=== PATIENT | male | born 1965 | race African-American/Black ===

== ENCOUNTER 2017-08-22 16:01 | Emergency (ER) | payer MEDICAID | END 2017-08-22 18:00 | disposition home or self-care (01) | LOC: M ED 16:01 | DX: S89.91XA Unspecified injury of right lower leg, initial encounter (principal); H40.9 Unspecified glaucoma; E03.9 Hypothyroidism, unspecified; X58.XXXA Exposure to other specified factors, initial encounter; Y92.89 Other specified places as the place of occurrence of the external cause; Y93.9 Activity, unspecified; Z79.899 Other long term (current) drug therapy | CPT/HCPCS: 73564 ==

== ENCOUNTER → 2017-08-29 | Outpatient (REF) | payer MEDICAID ==
[2017-08-29 20:38] LABS: BASO % 0.6 % (0.0-1.0); EOS # 0.2 10^3/uL (0.0-0.50); EOS % 4.2 % (0.0-3.0); HEMATOCRIT 41.5 % (42.0-52.0); HEMOGLOBIN 13.2 g/dl (14.0-18.0); IMMATURE GRANULOCYTE % 0.2 % (0-3.0); LYMPH % 42.3 % (24.0-44.0); MEAN CORPUSCULAR HEMOGLOBIN 27.7 pg (27.0-33.0); MEAN CORPUSCULAR HGB CONC 31.8 g/dl (32.0-36.5); MEAN CORPUSCULAR VOLUME 87.2 fl (80.0-96.0); MONO # 0.4 10^3/uL (0.0-0.8); MONO % 8.6 % (0.0-5.0); NEUTROPHILS # 2.1 10^3/uL (1.8-7.7); NEUTROPHILS % 44.1 % (36.0-66.0); PLATELET COUNT, AUTOMATED 170 10^3/uL (150-450); RED BLOOD COUNT 4.76 10^6/uL (4.30-6.10); WHITE BLOOD COUNT 4.8 10^3/uL (4.0-10.0)
[2017-08-29 20:54] LABS: TOTAL 25(OH) VITAMIN D 14.5 NG/ML (30.0-100.0)
[2017-08-29 21:08] LABS: ALBUMIN 3.9 GM/DL (3.2-5.2); ALBUMIN/GLOBULIN RATIO 1.08 (1.00-1.93); ALKALINE PHOSPHATASE 53 U/L (45-117); ALT/SGPT 34 U/L (12-78); ANION GAP 7 MEQ/L (8-16); AST/SGOT 20 U/L (7-37); BILIRUBIN,TOTAL 0.4 MG/DL (0.2-1.0); BLOOD UREA NITROGEN 14 MG/DL (7-18); CALCIUM LEVEL 8.6 MG/DL (8.5-10.1); CARBON DIOXIDE LEVEL 24 MEQ/L (21-32); CHLORIDE LEVEL 109 MEQ/L (98-107); CHOLESTEROL LEVEL 174 MG/DL (<200); CHOLESTEROL RISK RATIO 3.346 (<5); CREATININE FOR GFR 0.97 MG/DL (0.70-1.30); GLOMERULAR FILTRATION RATE > 60.0 (>56); GLUCOSE, FASTING 81 MG/DL (70-100); HDL CHOLESTEROL 52 MG/DL (>40); LDL CHOLESTEROL 101.4 MG/DL (<100); NON-HDL-C 122 MG/DL; POTASSIUM SERUM 4.4 MEQ/L (3.5-5.1); SODIUM LEVEL 140 MEQ/L (136-145); TOTAL PROTEIN 7.5 GM/DL (6.4-8.2); TRIGLYCERIDES LEVEL 103 MG/DL (<150)
[2017-08-29 21:35] LABS: HIV 1&2 SCREEN CENTAUR NEGATIVE (NEGATIVE)
[2017-08-29 21:42] LABS: ESTIMATED AVERAGE GLUCOSE 131 MG/DL (60-110); HEMOGLOBIN A1c 6.2 %
[2017-08-29 22:10] LABS: CHLAMYDIA DNA AMPLIFICATION NEGATIVE (NEGATIVE); GC DNA AMPLIFICATION NEGATIVE (NEGATIVE)
== END ==
LOC: M LAB REF 20:08
DX: Z00.00 Encounter for general adult medical examination without abnormal findings (principal)

== ENCOUNTER → 2017-09-06 | Outpatient (CLI) | payer OTHER, MEDICAID | LOC: M RAD 12:36 | DX: M71.21 Synovial cyst of popliteal space [Baker], right knee (principal) | CPT/HCPCS: 93971 ==

== ENCOUNTER → 2017-10-18 | Day surgery (SDC) | payer OTHER ==
[~2017-10-18] MED LIST: LIDOCAINE 1% MDV 20ML VIAL As Ordered; NS 1,000 ML IV; PROPOFOL 200 MG/20 ML VIAL As Ordered
== END | disposition home or self-care (01) ==
LOC: M OPP 09:01
DX: Z12.11 Encounter for screening for malignant neoplasm of colon (principal); K64.8 Other hemorrhoids; I10 Essential (primary) hypertension; E78.5 Hyperlipidemia, unspecified; E03.9 Hypothyroidism, unspecified; M19.90 Unspecified osteoarthritis, unspecified site; F41.9 Anxiety disorder, unspecified; F32.9 Major depressive disorder, single episode, unspecified; M25.569 Pain in unspecified knee; G47.30 Sleep apnea, unspecified; F17.210 Nicotine dependence, cigarettes, uncomplicated; Z79.899 Other long term (current) drug therapy
CPT/HCPCS: G0121

== ENCOUNTER → 2018-01-08 | Outpatient (REF) | payer OTHER ==
[2018-01-08 20:13] LABS: THYROID STIMULATING HORMONE 0.057 uIU/ML (0.358-3.740)
== END ==
LOC: M LAB REF 17:10
DX: E03.9 Hypothyroidism, unspecified (principal)
CPT/HCPCS: 84443

== ENCOUNTER → 2018-01-10 | Outpatient (CLI) | payer OTHER | LOC: M EKG 09:43 | DX: R00.1 Bradycardia, unspecified (principal); K08.499 Partial loss of teeth due to other specified cause, unspecified class | CPT/HCPCS: 93005 ==

== ENCOUNTER → 2018-02-05 | Outpatient (RCR) | payer OTHER | LOC: M PT 14:39 | DX: Z51.89 Encounter for other specified aftercare (principal); M75.41 Impingement syndrome of right shoulder; Z79.899 Other long term (current) drug therapy | CPT/HCPCS: 97014 ==

== ENCOUNTER 2018-02-11 15:51 | Outpatient (RCR) | payer OTHER | END 2018-03-08 | LOC: M PT 15:51 | DX: Z47.89 Encounter for other orthopedic aftercare (principal); M51.36 Other intervertebral disc degeneration, lumbar region; M16.0 Bilateral primary osteoarthritis of hip; M25.511 Pain in right shoulder | CPT/HCPCS: 97110 ==

== ENCOUNTER 2018-03-13 14:58 | Outpatient (RCR) | payer OTHER | END 2018-04-07 | LOC: M PT 14:58 | DX: Z47.89 Encounter for other orthopedic aftercare (principal); M51.36 Other intervertebral disc degeneration, lumbar region; M16.0 Bilateral primary osteoarthritis of hip; M75.41 Impingement syndrome of right shoulder | CPT/HCPCS: 97110 ==

== ENCOUNTER → 2018-05-07 | Outpatient (REF) | payer OTHER, MEDICAID ==
[2018-05-07 20:34] LABS: ALBUMIN/GLOBULIN RATIO 1.18 (1.00-1.93); ALKALINE PHOSPHATASE 64 U/L (45-117); ALT/SGPT 27 U/L (12-78); ANION GAP 3 MEQ/L (8-16); AST/SGOT 20 U/L (7-37); BILIRUBIN,TOTAL 0.6 MG/DL (0.2-1.0); BLOOD UREA NITROGEN 13 MG/DL (7-18); CARBON DIOXIDE LEVEL 26 MEQ/L (21-32); CHLORIDE LEVEL 110 MEQ/L (98-107); GLOMERULAR FILTRATION RATE > 60.0 (>56); GLUCOSE, FASTING 97 MG/DL (70-100); POTASSIUM SERUM 4.3 MEQ/L (3.5-5.1); SODIUM LEVEL 139 MEQ/L (136-145); TOTAL PROTEIN 7.4 GM/DL (6.4-8.2)
== END ==
LOC: M LAB REF 19:59
DX: E03.9 Hypothyroidism, unspecified (principal)
CPT/HCPCS: 84443

== ENCOUNTER → 2018-07-04 | Outpatient (CLI) | payer OTHER ==
[~2018-07-04] MED LIST changes: +BRIM0.2S13 OD; +CAPS0.1C2 EX; +DORZ2OPD OD; +IBUP-1022 PO; +IBUP80TA PO; +LEVO150T7 PO; -LIDOCAINE 1% MDV 20ML VIAL As Ordered; +LIPI20TA PO; -NS 1,000 ML IV; -PROPOFOL 200 MG/20 ML VIAL As Ordered; +TIMO0.2529 OP; +TRAV04OPD OU
--- NOTE | 2018-07-04 10:41 | REP ---
MRI LUMBAR SPINE WITHOUT CONTRAST: HISTORY: Degenerative disc disease in the lumbar region. Low back pain and bilateral hip pain. No comparison imaging. TECHNIQUE: Sagittal and axial T1- and T2-weighted scans are acquired in the usual fashion with and without fat saturation. Sequences include spin echo, turbo spin-echo, and STIR imaging sequences. MRI FINDINGS: There is straightening of the normal lumbar lordosis. There is advanced degenerative disc disease diffusely at each level from L2-3 through L4-5 with disc space narrowing and desiccation. There are reactive marrow changes associated with each of these discs as well. The tip of the conus medullaris is normal in position and appearance at T12-L1. No extra spinal abnormality is observed. Normal caliber aorta. Axial and sagittal images at the L1-2 disc level show left lateral disc bulging. No posterior or posterolateral disc bulging is seen. No central canal stenosis or neural foraminal narrowing is seen. At L2-3, there is mild to moderate central canal stenosis due to diffuse disc bulging, developmentally short pedicles, ligamentum flavum and facet hypertrophy, and the presence of some dorsal epidural fat. The thecal sac measures at 9 mm in AP dimension in the midline at this level. CSF T2 signal intensity is effaced. There is some disc bulging in the foraminal segment of the disc bilaterally as well. The nerve roots are surrounded by epidural fat without visible compression. At L3-4, there is mild diffuse disc bulging. No central canal stenosis is seen. Facet and ligamentum flavum hypertrophy are present. There is mild bilateral neural foraminal encroachment due to facet hypertrophy and disc bulging. At L4-L5, there is diffuse disc bulging. There is neural foraminal narrowing bilaterally due to disc bulging and facet hypertrophy. There is no evidence of spondylolysis or spondylolisthesis. No central canal stenosis is noted L4-5. Some facet and ligamentum flavum hypertrophy is present. At L5-S1, there is osteoarthritic facet hypertrophy bilaterally. No other finding. IMPRESSION: Degenerative spondylosis changes. The dominant abnormality is mild to moderate central canal stenosis at the L2-3 level due to a combination combined and developmental factors. There is multilevel neural foraminal narrowing which is most pronounced bilaterally at L4-5. Electronically Signed by Garett Jarrell MD 07/04/2018 11:51 A
== END ==
LOC: M RAD 08:54
PROVIDERS: ATTEND Physician Assistant
DX: M51.26 Other intervertebral disc displacement, lumbar region (principal); M48.061 Spinal stenosis, lumbar region without neurogenic claudication

== ENCOUNTER → 2018-08-16 | Outpatient (REF) | payer OTHER ==
[2018-08-16 16:56] LABS: BASO % 0.4 % (0.0-1.0); EOS # 0.2 10^3/uL (0.0-0.50); EOS % 2.6 % (0.0-3.0); HEMATOCRIT 42.1 % (42.0-52.0); HEMOGLOBIN 13.7 g/dl (13.5-17.5); LYMPH # 2.6 10^3/uL (1.5-4.5); LYMPH % 45.3 % (24.0-44.0); MEAN CORPUSCULAR HEMOGLOBIN 29.2 pg (27.0-33.0); MEAN CORPUSCULAR HGB CONC 32.5 g/dl (32.0-36.5); MEAN CORPUSCULAR VOLUME 89.8 fl (80.0-96.0); MONO # 0.5 10^3/uL (0.0-0.8); MONO % 8.1 % (0.0-5.0); NEUTROPHILS # 2.5 10^3/uL (1.8-7.7); NEUTROPHILS % 43.4 % (36.0-66.0); PLATELET COUNT, AUTOMATED 179 10^3/uL (150-450); RED BLOOD COUNT 4.69 10^6/uL (4.30-6.10); WHITE BLOOD COUNT 5.7 10^3/uL (4.0-10.0)
[2018-08-16 17:17] LABS: ALBUMIN 3.9 GM/DL (3.2-5.2); ALT/SGPT 34 U/L (12-78); BILIRUBIN,TOTAL 0.7 MG/DL (0.2-1.0); BLOOD UREA NITROGEN 16 MG/DL (7-18); CALCIUM LEVEL 8.9 MG/DL (8.5-10.1); CARBON DIOXIDE LEVEL 26 MEQ/L (21-32); CHLORIDE LEVEL 107 MEQ/L (98-107); CREATININE FOR GFR 0.98 MG/DL (0.70-1.30); GLOMERULAR FILTRATION RATE > 60.0 (>56); GLUCOSE, FASTING 92 MG/DL (70-100); HEMOGLOBIN A1c 6.3 %; POTASSIUM SERUM 4.4 MEQ/L (3.5-5.1); SODIUM LEVEL 137 MEQ/L (136-145); TOTAL PROTEIN 7.5 GM/DL (6.4-8.2)
== END ==
LOC: M LAB REF 16:15
PROVIDERS: ATTEND Nurse Practitioner Family
DX: Z13.9 Encounter for screening, unspecified (principal); I10 Essential (primary) hypertension; E03.9 Hypothyroidism, unspecified

== ENCOUNTER 2018-10-29 10:17 | Outpatient (RCR) | payer OTHER | END 2018-11-05 | LOC: M PT 10:17 | PROVIDERS: ATTEND Orthopaedic Surgery | DX: M17.11 Unilateral primary osteoarthritis, right knee (principal) ==

== ENCOUNTER 2018-12-05 13:00 | Outpatient (RCR) | payer OTHER | END 2018-12-06 | LOC: M PT 13:00 | PROVIDERS: ATTEND Orthopaedic Surgery | DX: M17.11 Unilateral primary osteoarthritis, right knee (principal) ==

== ENCOUNTER 2018-12-13 17:16 | Emergency (ER) | payer OTHER ==
[~2018-12-13] VITALS: Ht 180.3 cm; Wt 91.5 kg
[2018-12-13] MEDS ORDERED: ROBA500T PO (20:40)
[2018-12-13] MEDS ORDERED: AMLO25TA PO (20:44)
[2018-12-13] MEDS ORDERED: LIDOCAINE 5% (LIDODERM) PATCH TD ONE (20:45)
[2018-12-13] MEDS ORDERED: METHOCARBAMOL 750 MG TAB PO ONE (20:45)
[2018-12-13] MEDS ORDERED: **NOTE PATIENT COMMENT** MISC XX SCH (21:00)
[2018-12-13 21:06] VITALS: BP 139/81
[2018-12-14] MEDS ORDERED: **NOTE PATIENT COMMENT** MISC XX ONE (09:00)
== END 2018-12-13 21:07 | disposition home or self-care (01) ==
LOC: M ED 17:16
DX: S39.012A Strain of muscle, fascia and tendon of lower back, initial encounter (principal); X58.XXXA Exposure to other specified factors, initial encounter; Y92.89 Other specified places as the place of occurrence of the external cause; M62.830 Muscle spasm of back; I10 Essential (primary) hypertension; E03.9 Hypothyroidism, unspecified; H40.9 Unspecified glaucoma; Z79.899 Other long term (current) drug therapy; Z79.890 Hormone replacement therapy

== ENCOUNTER → 2018-12-31 | Outpatient (CLI) | payer OTHER ==
[~2018-12-31] MED LIST changes: +AMLO25TA PO; +ROBA500T PO
[2018-12-31 12:15] LABS: BASO % 0.5 % (0.0-1.0); EOS # 0.2 10^3/uL (0.0-0.50); EOS % 4.5 % (0.0-3.0); HEMATOCRIT 40.8 % (42.0-52.0); HEMOGLOBIN 13.4 g/dl (13.5-17.5); LYMPH # 2.1 10^3/uL (1.5-4.5); LYMPH % 50.1 % (24.0-44.0); MEAN CORPUSCULAR HEMOGLOBIN 29.8 pg (27.0-33.0); MEAN CORPUSCULAR HGB CONC 32.8 g/dl (32.0-36.5); MEAN CORPUSCULAR VOLUME 90.9 fl (80.0-96.0); MONO # 0.5 10^3/uL (0.0-0.8); MONO % 11.6 % (0.0-5.0); NEUTROPHILS # 1.4 10^3/uL (1.8-7.7); NEUTROPHILS % 33.1 % (36.0-66.0); PLATELET COUNT, AUTOMATED 220 10^3/uL (150-450); RED BLOOD COUNT 4.49 10^6/uL (4.30-6.10); WHITE BLOOD COUNT 4.2 10^3/uL (4.0-10.0)
[2018-12-31 12:17] LABS: APPEARANCE, URINE CLEAR (CLEAR); BACTERIA, URINE AUTO 1+ (NEGATIVE); BILIRUBIN, URINE AUTO NEGATIVE (NEGATIVE); BLOOD, URINE BLOOD NEGATIVE (NEGATIVE); COLOR, URINE YELLOW (YELLOW); GLUCOSE, URINE (UA) AUTO NEGATIVE (NEGATIVE); KETONE, URINE AUTO NEGATIVE (NEGATIVE); LEUKOCYTE ESTERASE, URINE AUTO NEGATIVE (NEGATIVE); NITRITE, URINE AUTO NEGATIVE (NEGATIVE); PROTEIN, URINE AUTO NEGATIVE (NEGATIVE); RBC, URINE AUTO 1 /HPF (0-3); SQUAMOUS EPITHELIAL CELL UR AU 0 /HPF (0-6); UROBILINOGEN, URINE AUTO 0.2 mg/dL (0.0-2.0); WBC, URINE AUTO 0 /HPF (0-3)
[2018-12-31 12:34] LABS: ERYTHROCYTE SEDIMENTATION RATE 5 mm/hr (0-20)
[2018-12-31 12:48] LABS: C REACTIVE PROTEIN QUANTITATIV < 0.30 MG/DL (0.00-0.30); RHEUMATOID FACTOR QUANT < 10.0 IU/ML (<15.0); URIC ACID 4.6 MG/DL (3.5-7.2)
[2019-01-02 00:07] LABS: ANTINUCLEAR ANTIBODIES DIRECT Negative (Negative); Lyme Disease IgG/IgM Antibodie <0.91 ISR (0.00-0.90); Lyme Disease IgM Ab Quantitati <0.80 index (0.00-0.79)
== END ==
LOC: M LAB 11:39
PROVIDERS: ATTEND Physician Assistant Surgical
DX: M16.12 Unilateral primary osteoarthritis, left hip (principal)

== ENCOUNTER 2019-01-02 10:47 | Outpatient (RCR) | payer OTHER | END 2019-01-05 | LOC: M PT 10:47 | PROVIDERS: ATTEND Physician Assistant Surgical | DX: M16.12 Unilateral primary osteoarthritis, left hip (principal) ==

== ENCOUNTER 2019-02-04 10:45 | Outpatient (RCR) | payer OTHER | END 2019-02-05 | LOC: M PT 10:45 | PROVIDERS: ATTEND Physician Assistant Surgical | DX: Z47.89 Encounter for other orthopedic aftercare (principal); M16.12 Unilateral primary osteoarthritis, left hip; M25.552 Pain in left hip ==

== ENCOUNTER 2019-02-06 10:50 | Outpatient (RCR) | payer OTHER | END 2019-03-08 | LOC: M PT 10:50 | PROVIDERS: ATTEND Physician Assistant Surgical | DX: Z47.89 Encounter for other orthopedic aftercare (principal); M16.12 Unilateral primary osteoarthritis, left hip ==

== ENCOUNTER → 2019-05-22 | Outpatient (CLI) | payer OTHER ==
--- NOTE | 2019-05-23 01:05 | REP ---
Clinical: Lower back pain. Technique: Single AP view of the pelvis. Findings: Osseous structures are intact. Joint spaces are within normal limits. Surrounding soft tissues are unremarkable. Impression: Nonspecific pelvic radiograph. Electronically Signed by Haider Corrales MD 05/23/2019 12:57 A
== END ==
LOC: M LAB 13:43
PROVIDERS: ATTEND Internal Medicine Rheumatology
DX: M54.5 Low back pain (principal)

== ENCOUNTER → 2019-05-28 | Outpatient (CLI) | payer OTHER ==
--- NOTE | 2019-05-28 17:06 | REP ---
Duplex extremity venous ultrasound: Bilateral lower extremity chandan History: Bilateral leg and calf pain times 4 days. Rule out DVT. Findings: The deep veins are anechoic and fully compressible from the groin to the popliteal fossa in the left and right lower extremity. Color flow imaging is homogeneous. Spectral Doppler interrogation demonstrates intact respiratory variation in flow and normal manual augmentation of flow. There is no evidence of deep vein thrombosis. There are complex hypoechoic areas in the popliteal fossa bilaterally consistent with bilateral Monet's cysts. On the right this measures 4.5 x 1.4 x 2.4 cm. On the left this measures 4.6 x 1.3 x 2.5 cm. Impression: Bilateral Monet's cyst, otherwise negative bilateral lower extremity duplex venous ultrasound. No evidence of deep vein thrombosis. Electronically Signed by Garett Jarrell MD 05/28/2019 04:58 P
== END ==
LOC: M RAD 16:13
PROVIDERS: ATTEND Physician Assistant Surgical
DX: M79.662 Pain in left lower leg (principal); M79.661 Pain in right lower leg; M71.21 Synovial cyst of popliteal space [Baker], right knee; M71.22 Synovial cyst of popliteal space [Baker], left knee

== ENCOUNTER → 2019-06-23 | Outpatient (REF) | payer OTHER ==
[2019-06-23 18:44] LABS: BASO % 0.8 % (0.0-1.0); EOS # 0.2 10^3/uL (0.0-0.5); EOS % 4.4 % (0.0-3.0); HEMATOCRIT 45.4 % (42.0-52.0); HEMOGLOBIN 14.8 g/dl (13.5-17.5); LYMPH # 2.1 10^3/uL (1.5-5.0); LYMPH % 44.4 % (24.0-44.0); MEAN CORPUSCULAR HEMOGLOBIN 29.7 pg (27.0-33.0); MEAN CORPUSCULAR HGB CONC 32.6 g/dl (32.0-36.5); MEAN CORPUSCULAR VOLUME 91.2 fl (80.0-96.0); MONO # 0.5 10^3/uL (0.0-0.8); MONO % 9.8 % (0.0-5.0); NEUTROPHILS % 40.4 % (36.0-66.0); PLATELET COUNT, AUTOMATED 144 10^3/uL (150-450); RED BLOOD COUNT 4.98 10^6/uL (4.30-6.10); WHITE BLOOD COUNT 4.8 10^3/uL (4.0-10.0)
[2019-06-23 18:52] LABS: ALBUMIN 3.8 GM/DL (3.2-5.2); ALT/SGPT 37 U/L (12-78); BILIRUBIN,TOTAL 0.8 MG/DL (0.2-1.0); BLOOD UREA NITROGEN 12 MG/DL (7-18); CARBON DIOXIDE LEVEL 27 MEQ/L (21-32); CHLORIDE LEVEL 110 MEQ/L (98-107); CHOLESTEROL LEVEL 204 MG/DL (<200); CHOLESTEROL RISK RATIO 3.709 (<5); CREATININE FOR GFR 0.98 MG/DL (0.70-1.30); FREE T4 0.72 NG/DL (0.76-1.46); GLOMERULAR FILTRATION RATE > 60.0 (>56); GLUCOSE, FASTING 91 MG/DL (70-100); HDL CHOLESTEROL 55 MG/DL (>40); LDL CHOLESTEROL 130 MG/DL (<100); NON-HDL-C 149 MG/DL; POTASSIUM SERUM 4.8 MEQ/L (3.5-5.1); SODIUM LEVEL 141 MEQ/L (136-145); TOTAL PROTEIN 7.3 GM/DL (6.4-8.2); TRIGLYCERIDES LEVEL 93 MG/DL (<150)
[2019-06-23 19:10] LABS: HEMOGLOBIN A1c 6.1 %
== END ==
LOC: M LAB REF 18:06
PROVIDERS: ATTEND Nurse Practitioner Family
DX: I10 Essential (primary) hypertension (principal); E78.5 Hyperlipidemia, unspecified; R73.03 Prediabetes; E03.9 Hypothyroidism, unspecified

== ENCOUNTER → 2019-08-25 | Outpatient (REF) | payer OTHER, MEDICAID ==
[2019-08-25 16:51] LABS: BASO % 0.6 % (0.0-1.0); EOS # 0.2 10^3/uL (0.0-0.5); HEMATOCRIT 50.9 % (42.0-52.0); HEMOGLOBIN 16.1 g/dl (13.5-17.5); LYMPH # 1.8 10^3/uL (1.5-5.0); LYMPH % 37.7 % (24.0-44.0); MEAN CORPUSCULAR HEMOGLOBIN 29.2 pg (27.0-33.0); MEAN CORPUSCULAR HGB CONC 31.6 g/dl (32.0-36.5); MEAN CORPUSCULAR VOLUME 92.4 fl (80.0-96.0); MONO # 0.6 10^3/uL (0.0-0.8); MONO % 13.3 % (0.0-5.0); NEUTROPHILS # 2.1 10^3/uL (1.5-8.5); NEUTROPHILS % 44.2 % (36.0-66.0); PLATELET COUNT, AUTOMATED 168 10^3/uL (150-450); RED BLOOD COUNT 5.51 10^6/uL (4.30-6.10); WHITE BLOOD COUNT 4.7 10^3/uL (4.0-10.0)
[2019-08-25 17:08] LABS: CHOLESTEROL RISK RATIO 3.651 (<5); THYROID STIMULATING HORMONE 1.73 uIU/ML (0.358-3.740)
== END ==
LOC: M LAB REF 16:22
PROVIDERS: ATTEND Nurse Practitioner Family
DX: E78.5 Hyperlipidemia, unspecified (principal); F17.200 Nicotine dependence, unspecified, uncomplicated; I10 Essential (primary) hypertension; E03.9 Hypothyroidism, unspecified

== ENCOUNTER → 2019-11-25 | Outpatient (REF) | payer OTHER, MEDICAID ==
[2019-11-25 13:43] LABS: BASO % 0.6 % (0.0-1.0); EOS # 0.2 10^3/uL (0.0-0.5); EOS % 3.7 % (0.0-3.0); HEMATOCRIT 43.1 % (42.0-52.0); LYMPH # 2.5 10^3/uL (1.5-5.0); LYMPH % 48.8 % (24.0-44.0); MEAN CORPUSCULAR HEMOGLOBIN 29.2 pg (27.0-33.0); MEAN CORPUSCULAR HGB CONC 32.5 g/dl (32.0-36.5); MONO # 0.5 10^3/uL (0.0-0.8); MONO % 10.3 % (0.0-5.0); NEUTROPHILS # 1.9 10^3/uL (1.5-8.5); NEUTROPHILS % 36.4 % (36.0-66.0); PLATELET COUNT, AUTOMATED 202 10^3/uL (150-450); RED BLOOD COUNT 4.79 10^6/uL (4.30-6.10); WHITE BLOOD COUNT 5.1 10^3/uL (4.0-10.0)
[2019-11-25 14:30] LABS: ALBUMIN 3.9 GM/DL (3.2-5.2); ALT/SGPT 43 U/L (12-78); BLOOD UREA NITROGEN 16 MG/DL (7-18); CARBON DIOXIDE LEVEL 25 MEQ/L (21-32); CHLORIDE LEVEL 110 MEQ/L (98-107); CHOLESTEROL LEVEL 161 MG/DL (<200); CHOLESTEROL RISK RATIO 3.037 (<5); CREATININE FOR GFR 0.89 MG/DL (0.70-1.30); GLOMERULAR FILTRATION RATE > 60.0 (>56); GLUCOSE, FASTING 99 MG/DL (70-100); HDL CHOLESTEROL 53 MG/DL (>40); LDL CHOLESTEROL 93 MG/DL (<100); NON-HDL-C 108 MG/DL; POTASSIUM SERUM 4.3 MEQ/L (3.5-5.1); SODIUM LEVEL 141 MEQ/L (136-145); TOTAL PROTEIN 7.4 GM/DL (6.4-8.2); TRIGLYCERIDES LEVEL 76 MG/DL (<150)
[2019-11-25 16:12] LABS: HEMOGLOBIN A1c 6.2 %
== END ==
LOC: M LAB REF 12:55
PROVIDERS: ATTEND Nurse Practitioner Family
DX: Z13.9 Encounter for screening, unspecified (principal); F17.200 Nicotine dependence, unspecified, uncomplicated; E03.9 Hypothyroidism, unspecified; I10 Essential (primary) hypertension; E78.5 Hyperlipidemia, unspecified

== ENCOUNTER → 2020-02-25 | Outpatient (REF) | payer OTHER, MEDICAID ==
[2020-02-25 14:16] LABS: ALBUMIN 3.9 GM/DL (3.2-5.2); ALT/SGPT 47 U/L (12-78); BILIRUBIN,TOTAL 0.7 MG/DL (0.2-1.0); BLOOD UREA NITROGEN 11 MG/DL (7-18); CALCIUM LEVEL 9.1 MG/DL (8.5-10.1); CARBON DIOXIDE LEVEL 32 MEQ/L (21-32); CHLORIDE LEVEL 106 MEQ/L (98-107); CHOLESTEROL LEVEL 178 MG/DL (<200); FREE T4 0.84 NG/DL (0.76-1.46); GLOMERULAR FILTRATION RATE > 60.0 (>56); GLUCOSE, FASTING 98 MG/DL (70-100); HDL CHOLESTEROL 51 MG/DL (>40); LDL CHOLESTEROL 108 MG/DL (<100); NON-HDL-C 127 MG/DL; POTASSIUM SERUM 4.6 MEQ/L (3.5-5.1); SODIUM LEVEL 139 MEQ/L (136-145); TOTAL PROTEIN 7.7 GM/DL (6.4-8.2); TRIGLYCERIDES LEVEL 97 MG/DL (<150)
[2020-02-25 14:20] LABS: BASO % 0.7 % (0.0-1.0); EOS # 0.3 10^3/uL (0.0-0.5); EOS % 5.2 % (0.0-3.0); HEMATOCRIT 49.1 % (42.0-52.0); HEMOGLOBIN 15.7 g/dl (13.5-17.5); LYMPH # 2.4 10^3/uL (1.5-5.0); LYMPH % 42.7 % (24.0-44.0); MEAN CORPUSCULAR HEMOGLOBIN 29.8 pg (27.0-33.0); MEAN CORPUSCULAR VOLUME 93.2 fl (80.0-96.0); MONO # 0.6 10^3/uL (0.0-0.8); MONO % 10.7 % (0.0-5.0); NEUTROPHILS # 2.3 10^3/uL (1.5-8.5); NEUTROPHILS % 40.5 % (36.0-66.0); RED BLOOD COUNT 5.27 10^6/uL (4.30-6.10); WHITE BLOOD COUNT 5.7 10^3/uL (4.0-10.0)
[2020-02-25 18:13] LABS: HEMOGLOBIN A1c 5.9 %
== END ==
LOC: M LAB REF 12:03
PROVIDERS: ATTEND Nurse Practitioner Family
DX: R73.03 Prediabetes (principal); M54.89 Other dorsalgia; E03.9 Hypothyroidism, unspecified; F17.200 Nicotine dependence, unspecified, uncomplicated

== ENCOUNTER → 2020-05-28 | Outpatient (REF) | payer OTHER, MEDICAID ==
[2020-05-28 17:18] LABS: BASO % 0.5 % (0.0-1.0); EOS # 0.2 10^3/uL (0.0-0.5); EOS % 2.3 % (0.0-3.0); HEMATOCRIT 47.6 % (42.0-52.0); HEMOGLOBIN 14.8 g/dl (13.5-17.5); LYMPH # 2.8 10^3/uL (1.5-5.0); LYMPH % 37.5 % (24.0-44.0); MEAN CORPUSCULAR HEMOGLOBIN 28.2 pg (27.0-33.0); MEAN CORPUSCULAR HGB CONC 31.1 g/dl (32.0-36.5); MEAN CORPUSCULAR VOLUME 90.8 fl (80.0-96.0); MONO # 0.9 10^3/uL (0.0-0.8); MONO % 11.4 % (0.0-5.0); NEUTROPHILS # 3.6 10^3/uL (1.5-8.5); PLATELET COUNT, AUTOMATED 144 10^3/uL (150-450); RED BLOOD COUNT 5.24 10^6/uL (4.30-6.10); WHITE BLOOD COUNT 7.5 10^3/uL (4.0-10.0)
[2020-05-28 17:40] LABS: HEMOGLOBIN A1c 5.9 %
[2020-05-28 17:58] LABS: ALBUMIN 3.8 GM/DL (3.2-5.2); ALT/SGPT 40 U/L (12-78); BLOOD UREA NITROGEN 16 MG/DL (7-18); CALCIUM LEVEL 8.7 MG/DL (8.5-10.1); CARBON DIOXIDE LEVEL 25 MEQ/L (21-32); CHLORIDE LEVEL 109 MEQ/L (98-107); CHOLESTEROL LEVEL 162 MG/DL (<200); CHOLESTEROL RISK RATIO 2.314 (<5); CREATININE FOR GFR 1.04 MG/DL (0.70-1.30); FREE T4 1.02 NG/DL (0.76-1.46); GLOMERULAR FILTRATION RATE > 60.0 (>56); GLUCOSE, FASTING 83 MG/DL (70-100); HDL CHOLESTEROL 70 MG/DL (>40); LDL CHOLESTEROL 76 MG/DL (<100); NON-HDL-C 92 MG/DL; POTASSIUM SERUM 4.4 MEQ/L (3.5-5.1); SODIUM LEVEL 140 MEQ/L (136-145); TOTAL PROTEIN 7.3 GM/DL (6.4-8.2); TRIGLYCERIDES LEVEL 80 MG/DL (<150)
[2020-05-28 18:15] LABS: HEPATITIS B SURFACE ANTIGEN NEGATIVE (NEGATIVE)
[2020-05-28 18:41] LABS: HEPATITIS B CORE ANTIBODY IGM NEGATIVE (NEGATIVE)
[2020-05-28 18:43] LABS: HIV 1&2 SCREEN CENTAUR NEGATIVE (NEGATIVE)
[2020-05-28 18:44] LABS: HEPATITIS A ANTIBODY IGM NEGATIVE (NEGATIVE)
[2020-05-31 21:06] LABS: PSA TOTAL 0.7 ng/mL (0.0-4.0)
== END ==
LOC: M LAB REF 16:28
PROVIDERS: ATTEND Nurse Practitioner Family
DX: E66.9 Obesity, unspecified (principal); E03.9 Hypothyroidism, unspecified; Z13.9 Encounter for screening, unspecified; I10 Essential (primary) hypertension

== ENCOUNTER → 2020-09-29 | Outpatient (REF) | payer OTHER, MEDICAID ==
[2020-09-29 18:16] LABS: BASO % 0.7 % (0.0-1.0); EOS # 0.3 10^3/uL (0.0-0.5); EOS % 4.5 % (0.0-3.0); HEMATOCRIT 49.6 % (42.0-52.0); HEMOGLOBIN 15.9 g/dl (13.5-17.5); LYMPH # 2.1 10^3/uL (1.5-5.0); LYMPH % 36.3 % (24.0-44.0); MEAN CORPUSCULAR HEMOGLOBIN 29.3 pg (27.0-33.0); MEAN CORPUSCULAR HGB CONC 32.1 g/dl (32.0-36.5); MEAN CORPUSCULAR VOLUME 91.3 fl (80.0-96.0); MONO # 0.6 10^3/uL (0.0-0.8); MONO % 9.5 % (2.0-8.0); NEUTROPHILS # 2.8 10^3/uL (1.5-8.5); NEUTROPHILS % 48.8 % (36.0-66.0); PLATELET COUNT, AUTOMATED 193 10^3/uL (150-450); RED BLOOD COUNT 5.43 10^6/uL (4.30-6.10); WHITE BLOOD COUNT 5.8 10^3/uL (4.0-10.0)
[2020-09-29 18:51] LABS: ALBUMIN 4.1 GM/DL (3.2-5.2); ALT/SGPT 41 U/L (12-78); BILIRUBIN,TOTAL 0.9 MG/DL (0.2-1.0); BLOOD UREA NITROGEN 11 MG/DL (7-18); CALCIUM LEVEL 9.3 MG/DL (8.5-10.1); CARBON DIOXIDE LEVEL 29 MEQ/L (21-32); CHLORIDE LEVEL 109 MEQ/L (98-107); CHOLESTEROL LEVEL 181 MG/DL (<200); CHOLESTEROL RISK RATIO 3.351 (<5); CREATININE FOR GFR 1.09 MG/DL (0.70-1.30); FREE T4 0.94 NG/DL (0.76-1.46); GLOMERULAR FILTRATION RATE > 60.0 (>56); GLUCOSE, FASTING 104 MG/DL (70-100); HDL CHOLESTEROL 54 MG/DL (>40); LDL CHOLESTEROL 109 MG/DL (<100); NON-HDL-C 127 MG/DL; POTASSIUM SERUM 5.6 MEQ/L (3.5-5.1); SODIUM LEVEL 140 MEQ/L (136-145); TOTAL PROTEIN 7.7 GM/DL (6.4-8.2); TRIGLYCERIDES LEVEL 90 MG/DL (<150)
[2020-09-29 18:54] LABS: TOTAL 25(OH) VITAMIN D 37.7 NG/ML (30.0-100.0)
[2020-09-29 20:13] LABS: HEMOGLOBIN A1c 5.8 %
== END ==
LOC: M LAB REF 16:35
PROVIDERS: ATTEND Nurse Practitioner Family
DX: E03.9 Hypothyroidism, unspecified (principal); I10 Essential (primary) hypertension; F17.200 Nicotine dependence, unspecified, uncomplicated

== ENCOUNTER → 2020-10-06 | Outpatient (REF) | payer OTHER, MEDICAID ==
[2020-10-06 17:44] LABS: ALBUMIN 4.1 GM/DL (3.2-5.2); ALT/SGPT 42 U/L (12-78); BILIRUBIN,TOTAL 0.7 MG/DL (0.2-1.0); BLOOD UREA NITROGEN 18 MG/DL (7-18); CALCIUM LEVEL 9.8 MG/DL (8.5-10.1); CARBON DIOXIDE LEVEL 27 MEQ/L (21-32); CHLORIDE LEVEL 107 MEQ/L (98-107); CREATININE FOR GFR 1.01 MG/DL (0.70-1.30); GLOMERULAR FILTRATION RATE > 60.0 (>56); GLUCOSE, FASTING 106 MG/DL (70-100); POTASSIUM SERUM 4.4 MEQ/L (3.5-5.1); SODIUM LEVEL 139 MEQ/L (136-145); TOTAL PROTEIN 7.6 GM/DL (6.4-8.2)
== END ==
LOC: M LAB REF 16:31
PROVIDERS: ATTEND Nurse Practitioner Family
DX: E87.5 Hyperkalemia (principal)

== ENCOUNTER 2021-03-17 21:04 | Emergency (ER) | payer OTHER, MEDICAID ==
[~2021-03-17] VITALS: Ht 180.3 cm; Wt 96.1 kg
[2021-03-17 22:04] LABS: BASO % 0.4 % (0.0-1.0); EOS # 0.3 10^3/uL (0.0-0.5); EOS % 4.1 % (0.0-3.0); HEMATOCRIT 42.5 % (42.0-52.0); HEMOGLOBIN 14.2 g/dl (13.5-17.5); LYMPH % 42.8 % (24.0-44.0); MEAN CORPUSCULAR HGB CONC 33.4 g/dl (32.0-36.5); MEAN CORPUSCULAR VOLUME 89.9 fl (80.0-96.0); MONO # 0.8 10^3/uL (0.0-0.8); MONO % 11.9 % (2.0-8.0); NEUTROPHILS # 2.9 10^3/uL (1.5-8.5); NEUTROPHILS % 40.5 % (36.0-66.0); PLATELET COUNT, AUTOMATED 196 10^3/uL (150-450); RED BLOOD COUNT 4.73 10^6/uL (4.30-6.10); WHITE BLOOD COUNT 7.1 10^3/uL (4.0-10.0)
[2021-03-17 22:31] LABS: ALBUMIN 3.5 GM/DL (3.2-5.2); ALT/SGPT 40 U/L (12-78); BILIRUBIN,DIRECT 0.1 MG/DL (0.0-0.2); BILIRUBIN,TOTAL 0.6 MG/DL (0.2-1.0); BLOOD UREA NITROGEN 18 MG/DL (7-18); CALCIUM LEVEL 8.6 MG/DL (8.5-10.1); CARBON DIOXIDE LEVEL 24 MEQ/L (21-32); CHLORIDE LEVEL 107 MEQ/L (98-107); CK-MB VALUE MASS 3.5 NG/ML (<3.6); CPK CREATINE PHOSPHOKINASE 323 U/L (39-308); CREATININE FOR GFR 0.98 MG/DL (0.70-1.30); GLOMERULAR FILTRATION RATE > 60.0 (>56); GLUCOSE, FASTING 85 MG/DL (70-100); LIPASE 178 U/L (73-393); MB/CK RELATIVE INDEX 1.08 (< OR =4); SODIUM LEVEL 137 MEQ/L (136-145); TOTAL PROTEIN 6.8 GM/DL (6.4-8.2); TROPONIN I < 0.02 NG/ML (< 0.10)
--- NOTE | 2021-03-17 22:31 | REPVR ---
PROCEDURE INFORMATION: Exam: XR Chest Exam date and time: 03/17/2021 9:57 PM Age: 55 years old Clinical indication: Other: Chest pain TECHNIQUE: Imaging protocol: XR of the chest. Views: 1 view. COMPARISON: No relevant prior studies available. FINDINGS: Lungs: Unremarkable. No consolidation. Pleural spaces: Unremarkable. No pleural effusion. No pneumothorax. Heart/Mediastinum: Unremarkable. No cardiomegaly. Bones/joints: Unremarkable. IMPRESSION: No acute findings. Electronically signed by: Jameel Otero On 03/17/2021 22:31:30 PM
[2021-03-17 22:46] VITALS: BP 172/103
--- NOTE | 2021-03-18 17:44 | ECGEPIP ---
[facility] - ED Test Date: 2021-03-17 Pat Name: CHARITO DAVALOS Department: Room: - Gender: Male Box Person: ed : [id number] Requested By: MICHEAL Richards Order Number: [id number] Reading MD: Romain Ibanez Measurements Intervals Irons Rate: 64 P: 2 RI: 166 QRS: -37 QRSD: 90 T: 35 QT: 438 QTc: 451 Interpretive Statements Normal sinus rhythm Left axis deviation SIMILAR TO 01/10/18 Electronically Signed on 03-18-2021 17:43:45 EDT by Romain Ibanez
== END 2021-03-17 23:00 | disposition home or self-care (01) ==
LOC: M ED 21:04
DX: R07.89 Other chest pain (principal); I10 Essential (primary) hypertension; H40.9 Unspecified glaucoma; M54.5 Low back pain; F41.9 Anxiety disorder, unspecified; F32.9 Major depressive disorder, single episode, unspecified; F17.200 Nicotine dependence, unspecified, uncomplicated; Z79.899 Other long term (current) drug therapy

== ENCOUNTER → 2022-04-24 | Outpatient (REF) | payer OTHER, MEDICAID ==
[2022-04-24 12:36] LABS: CHOLESTEROL RISK RATIO 3.772 (<5)
[2022-04-24 13:15] LABS: HEMOGLOBIN A1c 6.1 %
== END ==
LOC: M LAB REF 11:36
PROVIDERS: ATTEND Nurse Practitioner Family
DX: E03.9 Hypothyroidism, unspecified (principal); Z68.29 Body mass index [BMI] 29.0-29.9, adult; I10 Essential (primary) hypertension; F17.200 Nicotine dependence, unspecified, uncomplicated

== ENCOUNTER → 2022-07-20 | Outpatient (REF) | payer OTHER, MEDICAID ==
[2022-07-20 11:35] LABS: HEMOGLOBIN A1c 5.4 % (4.0-6.0)
[2022-07-20 11:54] LABS: CHOLESTEROL RISK RATIO 4.01 (<5); HDL CHOLESTEROL 43.3 MG/DL (>40); LDL CHOLESTEROL 111.5 MG/DL (<100)
[2022-07-20 11:55] LABS: FREE T4 1.05 NG/DL (0.89-1.76); THYROID STIMULATING HORMONE 2.45 uIU/ML (0.55-4.78)
== END ==
LOC: M LAB REF 10:23
PROVIDERS: ATTEND Nurse Practitioner Family
DX: Z13.228 Encounter for screening for other metabolic disorders (principal)

== ENCOUNTER → 2022-07-31 | Outpatient (CLI) | payer OTHER, MEDICAID | LOC: M RAD 10:55 | PROVIDERS: ATTEND Nurse Practitioner Family | DX: M25.511 Pain in right shoulder (principal); M19.011 Primary osteoarthritis, right shoulder ==

== ENCOUNTER → 2022-08-08 | Outpatient (RCR) | payer MEDICAID, OTHER | LOC: M PT 10:13 | PROVIDERS: ATTEND Nurse Practitioner Family | DX: M25.511 Pain in right shoulder (principal) ==

== ENCOUNTER → 2022-09-05 | Outpatient (RCR) | payer OTHER | LOC: M PT 08-14 10:43 | PROVIDERS: ATTEND Nurse Practitioner Family | DX: M25.511 Pain in right shoulder (principal) ==

== ENCOUNTER 2022-10-05 10:00 | Outpatient (RCR) | payer OTHER | END 2022-10-06 | LOC: M PT 10:00 | PROVIDERS: ATTEND Nurse Practitioner Family | DX: M25.511 Pain in right shoulder (principal) ==

== ENCOUNTER 2022-11-02 10:00 | Outpatient (RCR) | payer OTHER | END 2022-11-05 | LOC: M PT 10:00 | PROVIDERS: ATTEND Nurse Practitioner Family | DX: M25.511 Pain in right shoulder (principal) ==

== ENCOUNTER → 2022-11-23 | Outpatient (REF) | payer MEDICAID, OTHER ==
[2022-11-23 14:22] LABS: BASO % 0.6 % (0.0-1.0); EOS # 0.3 10^3/uL (0.0-0.5); EOS % 5.1 % (0.0-3.0); HEMATOCRIT 46.3 % (42.0-52.0); LYMPH # 2.8 10^3/uL (1.5-5.0); LYMPH % 44.3 % (24.0-44.0); MEAN CORPUSCULAR HEMOGLOBIN 29.4 pg (27.0-33.0); MEAN CORPUSCULAR HGB CONC 32.4 g/dl (32.0-36.5); MEAN CORPUSCULAR VOLUME 90.6 fl (80.0-96.0); MONO # 0.7 10^3/uL (0.0-0.8); MONO % 10.4 % (2.0-8.0); NEUTROPHILS # 2.5 10^3/uL (1.5-8.5); NEUTROPHILS % 39.4 % (36.0-66.0); PLATELET COUNT, AUTOMATED 183 10^3/uL (150-450); RED BLOOD COUNT 5.11 10^6/uL (4.30-6.10); WHITE BLOOD COUNT 6.3 10^3/uL (4.0-10.0)
[2022-11-23 14:26] LABS: ALBUMIN 3.7 G/DL (3.2-5.2); ALKALINE PHOSPHATASE 42 U/L (46-116); ALT/SGPT 16 U/L (7.0-40); AST/SGOT 24 U/L (<34); BILIRUBIN,TOTAL 1.1 MG/DL (0.3-1.2); BLOOD UREA NITROGEN 14 MG/DL (9-23); CALCIUM LEVEL 8.9 MG/DL (8.5-10.1); CARBON DIOXIDE LEVEL 28 MMOL/L (20-31); CHLORIDE LEVEL 107 MMOL/L (98-107); CHOLESTEROL LEVEL 153 MG/DL (<200); GLOMERULAR FILTRATION RATE > 60.0 (>56); GLUCOSE, FASTING 97 MG/DL (60-100); HDL CHOLESTEROL 44.9 MG/DL (>40); LDL CHOLESTEROL 91.9 MG/DL (<100); NON-HDL-C 108.1 MG/DL; POTASSIUM SERUM 4.3 MMOL/L (3.5-5.1); SODIUM LEVEL 139 MMOL/L (136-145); TOTAL PROTEIN 6.8 G/DL (5.7-8.2); TRIGLYCERIDES LEVEL 81 MG/DL (<150)
[2022-11-23 14:27] LABS: THYROID STIMULATING HORMONE 2.195 uIU/ML (0.55-4.78)
[2022-11-23 14:40] LABS: HEMOGLOBIN A1c 5.8 % (4.0-6.0)
== END ==
LOC: M LAB REF 13:01
PROVIDERS: ATTEND Nurse Practitioner Family
DX: Z13.228 Encounter for screening for other metabolic disorders (principal)

== ENCOUNTER → 2023-03-08 | Outpatient (RCR) | payer OTHER | LOC: M PT 02-13 14:06 | PROVIDERS: ATTEND Physician Assistant Surgical | DX: M17.0 Bilateral primary osteoarthritis of knee (principal) ==

== ENCOUNTER 2023-04-12 15:25 | Outpatient (RCR) | payer OTHER ==
[2023-05-07] MEDS ORDERED: TIMO1DRO4 OU (07:59)
[2023-05-07] MEDS ORDERED: MAGN250T7 PO (07:59)
[2023-05-07] MEDS ORDERED: VITA100018 PO (07:59)
[2023-05-07] MEDS ORDERED: TRAV2.5D OU (07:59)
[2023-05-07] MEDS ORDERED: IBUP200C25 PO (07:59)
[2023-05-07] MEDS ORDERED: CETI-24 PO (07:59)
[2023-05-07] MEDS ORDERED: THERTAB52 PO (07:59)
== END 2023-05-08 ==
LOC: M PT 15:25
PROVIDERS: ATTEND Physician Assistant Surgical
DX: M17.0 Bilateral primary osteoarthritis of knee (principal)

== ENCOUNTER 2023-05-09 08:42 | Day surgery (SDC) | payer OTHER ==
[~2023-05-09] VITALS: Ht 180.3 cm; Wt 96.0 kg
[~2023-05-09 08:42] MED LIST changes: +CEFUROXIME 1MG/0.1ML INTRACAMERAL INJ As Ordered ONE; +CETI-24 PO; +IBUP200C25 PO; +LIDOCAINE 3.5 % 1ML OPHTH TOPICAL GEL OU ONE; +MAGN250T7 PO; +THERTAB52 PO; +TIMO1DRO4 OU; +TRAV2.5D OU; +VITA100018 PO
[2023-05-09] MEDS ORDERED: MIDAZOLAM INJ 2MG/2ML VIAL As Ordered ONE (10:52)
[2023-05-09] MEDS ORDERED: fentaNYL 100 MCG/2 ML INJECTION As Ordered ONE (10:52)
[2023-05-09] MEDS: LIDOCAINE 1% SDV 5ML VIAL As Ordered ONE (11:24)
[2023-05-09] MEDS: TOBRADEX OPHTH OINT 3.5 GM As Ordered ONE (11:26)
[2023-05-09] MEDS: mitoMYcin 0.2 MG/VIAL KIT FOR OPHTHALMIC USE As Ordered ONE (11:26)
[2023-05-09 12:07] VITALS: BP 132/63; TEMP 97.2; O2SAT 96
== END 2023-05-09 13:30 | disposition home or self-care (01) ==
LOC: M SDC 08:42
PROVIDERS: ATTEND Ophthalmology
DX: H40.9 Unspecified glaucoma (principal); I10 Essential (primary) hypertension; E03.9 Hypothyroidism, unspecified; E78.00 Pure hypercholesterolemia, unspecified; Z79.899 Other long term (current) drug therapy; Z79.890 Hormone replacement therapy; F17.200 Nicotine dependence, unspecified, uncomplicated
CPT/HCPCS: 66183; C1783; J2250; J3010; J7315

== ENCOUNTER → 2023-06-07 | Outpatient (RCR) | payer OTHER ==
[~2023-06-07] MED LIST changes: -CEFUROXIME 1MG/0.1ML INTRACAMERAL INJ As Ordered ONE; -LIDOCAINE 3.5 % 1ML OPHTH TOPICAL GEL OU ONE
== END ==
LOC: M PT 05-15 13:46
PROVIDERS: ATTEND Physician Assistant Surgical
DX: M25.511 Pain in right shoulder (principal)

== ENCOUNTER 2023-06-26 12:15 | Outpatient (RCR) | payer OTHER | END 2023-07-08 | LOC: M PT 12:15 | PROVIDERS: ATTEND Physician Assistant Surgical | DX: M25.511 Pain in right shoulder (principal) ==

== ENCOUNTER → 2023-07-30 | Outpatient (REF) | payer OTHER | LOC: M LAB REF 11:43 | PROVIDERS: ATTEND Nurse Practitioner Family | DX: E03.9 Hypothyroidism, unspecified (principal) ==

== ENCOUNTER → 2023-10-30 | Outpatient (REF) | payer OTHER ==
[2023-10-30 14:12] LABS: BASO % 0.5 % (0.0-1.0); EOS # 0.2 10^3/uL (0.0-0.5); EOS % 3.1 % (0.0-3.0); HEMATOCRIT 47.2 % (42.0-52.0); HEMOGLOBIN 15.4 g/dl (13.5-17.5); LYMPH # 2.8 10^3/uL (1.5-5.0); LYMPH % 51.8 % (24.0-44.0); MEAN CORPUSCULAR HEMOGLOBIN 29.7 pg (27.0-33.0); MEAN CORPUSCULAR HGB CONC 32.6 g/dl (32.0-36.5); MEAN CORPUSCULAR VOLUME 90.9 fl (80.0-96.0); MONO # 0.5 10^3/uL (0.0-0.8); MONO % 9.3 % (2.0-8.0); NEUTROPHILS # 1.9 10^3/uL (1.5-8.5); NEUTROPHILS % 34.9 % (36.0-66.0); PLATELET COUNT, AUTOMATED 151 10^3/uL (150-450); RED BLOOD COUNT 5.19 10^6/uL (4.30-6.10); WHITE BLOOD COUNT 5.5 10^3/uL (4.0-10.0)
[2023-10-30 14:19] LABS: ALBUMIN 3.7 G/DL (3.2-5.2); ALKALINE PHOSPHATASE 56 U/L (46-116); ALT/SGPT 40 U/L (7.0-40); AST/SGOT 19 U/L (<34); BILIRUBIN,TOTAL 0.8 MG/DL (0.3-1.2); BLOOD UREA NITROGEN 13 MG/DL (9-23); CALCIUM LEVEL 8.9 MG/DL (8.5-10.1); CARBON DIOXIDE LEVEL 27 MMOL/L (20-31); CHLORIDE LEVEL 107 MMOL/L (98-107); CHOLESTEROL LEVEL 180 MG/DL (<200); CHOLESTEROL RISK RATIO 3.55 (<5); CREATININE FOR GFR 0.93 MG/DL (0.70-1.30); GLOMERULAR FILTRATION RATE > 60.0 (>56); GLUCOSE, FASTING 93 MG/DL (60-100); HDL CHOLESTEROL 50.6 MG/DL (>40); LDL CHOLESTEROL 113.6 MG/DL (<100); NON-HDL-C 129.4 MG/DL; POTASSIUM SERUM 4.2 MMOL/L (3.5-5.1); SODIUM LEVEL 139 MMOL/L (136-145); THYROID STIMULATING HORMONE 4.111 uIU/ML (0.55-4.78); TRIGLYCERIDES LEVEL 79 MG/DL (<150)
[2023-10-30 14:20] LABS: TOTAL 25(OH) VITAMIN D 39.4 NG/ML (20.0-100.0)
[2023-10-30 14:40] LABS: HEMOGLOBIN A1c 5.7 % (4.0-6.0)
== END ==
LOC: M LAB REF 12:46
PROVIDERS: ATTEND Nurse Practitioner Family
DX: E66.3 Overweight (principal); E55.9 Vitamin D deficiency, unspecified

== ENCOUNTER 2023-12-06 13:30 | Outpatient (RCR) | payer OTHER | END 2023-12-07 | LOC: M PT 13:30 | PROVIDERS: ATTEND Nurse Practitioner Family | DX: M54.6 Pain in thoracic spine (principal) ==

== ENCOUNTER → 2024-02-12 | Outpatient (REF) | payer OTHER ==
[2024-02-12 15:35] LABS: CHOLESTEROL RISK RATIO 7.95 (<5); HDL CHOLESTEROL 38.6 MG/DL (>40); LDL CHOLESTEROL 234.8 MG/DL (<100); NON-HDL-C 268.4 MG/DL
== END ==
LOC: M LAB REF 13:46
PROVIDERS: ATTEND Nurse Practitioner Family
DX: E03.9 Hypothyroidism, unspecified (principal); I10 Essential (primary) hypertension; F17.200 Nicotine dependence, unspecified, uncomplicated

== ENCOUNTER → 2024-05-21 | Outpatient (REF) | payer OTHER ==
[2024-05-21 14:35] LABS: ALBUMIN 3.2 G/DL (3.2-5.2); ALKALINE PHOSPHATASE 51 U/L (40-129); ALT/SGPT 36 U/L (7.0-40); AST/SGOT 32 U/L (<34); BILIRUBIN,TOTAL 0.6 MG/DL (0.3-1.2); BLOOD UREA NITROGEN 17 MG/DL (9-23); CARBON DIOXIDE LEVEL 26 MMOL/L (20-31); CHLORIDE LEVEL 111 MMOL/L (98-107); CHOLESTEROL LEVEL 252 MG/DL (<200); CHOLESTEROL RISK RATIO 5.19 (<5); CREATININE FOR GFR 1.04 MG/DL (0.70-1.30); GLOMERULAR FILTRATION RATE > 60.0 (>56); GLUCOSE, FASTING 95 MG/DL (60-100); HDL CHOLESTEROL 48.5 MG/DL (>40); LDL CHOLESTEROL 182.9 MG/DL (<100); NON-HDL-C 203.5 MG/DL; POTASSIUM SERUM 4.4 MMOL/L (3.5-5.1); SODIUM LEVEL 141 MMOL/L (136-145); TRIGLYCERIDES LEVEL 103 MG/DL (<150)
[2024-05-21 14:38] LABS: THYROID STIMULATING HORMONE 7.711 uIU/ML (0.55-4.78)
== END ==
LOC: M LAB REF 12:45
PROVIDERS: ATTEND Nurse Practitioner Family
DX: E03.9 Hypothyroidism, unspecified (principal); I10 Essential (primary) hypertension; F17.200 Nicotine dependence, unspecified, uncomplicated

== ENCOUNTER 2024-08-07 13:39 | Outpatient (RCR) | payer OTHER | END 2024-08-08 | LOC: M PT 13:39 | PROVIDERS: ATTEND Nurse Practitioner Family | DX: M25.561 Pain in right knee (principal); M25.562 Pain in left knee ==

== ENCOUNTER → 2024-08-20 | Outpatient (REF) | payer OTHER ==
[2024-08-20 17:39] LABS: ALBUMIN 3.5 G/DL (3.2-5.2); ALKALINE PHOSPHATASE 58 U/L (40-129); ALT/SGPT 38 U/L (7.0-40); AST/SGOT 28 U/L (<34); BILIRUBIN,TOTAL 0.6 MG/DL (0.3-1.2); BLOOD UREA NITROGEN 12 MG/DL (9-23); CALCIUM LEVEL 9.3 MG/DL (8.5-10.1); CARBON DIOXIDE LEVEL 29 MMOL/L (20-31); CHLORIDE LEVEL 104 MMOL/L (98-107); CHOLESTEROL LEVEL 202 MG/DL (<200); CHOLESTEROL RISK RATIO 2.92 (<5); CREATININE FOR GFR 1.08 MG/DL (0.70-1.30); GLOMERULAR FILTRATION RATE > 60.0 (>56); GLUCOSE, FASTING 113 MG/DL (60-100); HDL CHOLESTEROL 69.1 MG/DL (>40); LDL CHOLESTEROL 88.3 MG/DL (<100); NON-HDL-C 132.9 MG/DL; POTASSIUM SERUM 4.2 MMOL/L (3.5-5.1); SODIUM LEVEL 140 MMOL/L (136-145); TOTAL PROTEIN 7.2 G/DL (5.7-8.2); TRIGLYCERIDES LEVEL 223 MG/DL (<150)
[2024-08-20 17:40] LABS: THYROID STIMULATING HORMONE 5.764 uIU/ML (0.55-4.78)
[2024-08-20 17:41] LABS: FREE T4 1.02 NG/DL (0.89-1.76)
[2024-08-20 18:00] LABS: HEMOGLOBIN A1c 5.8 % (4.0-6.0)
== END ==
LOC: M LAB REF 16:48
PROVIDERS: ATTEND Nurse Practitioner Family
DX: E03.9 Hypothyroidism, unspecified (principal); I10 Essential (primary) hypertension

== ENCOUNTER 2024-08-26 14:30 | Outpatient (RCR) | payer OTHER | END 2024-09-05 | LOC: M PT 14:30 | PROVIDERS: ATTEND Nurse Practitioner Family | DX: M25.561 Pain in right knee (principal); M25.562 Pain in left knee ==

== ENCOUNTER → 2024-08-27 | Outpatient (REF) | payer OTHER | LOC: M LAB REF 12:08 | PROVIDERS: ATTEND Nurse Practitioner Family | DX: B34.9 Viral infection, unspecified (principal) ==

== ENCOUNTER → 2025-01-28 | Outpatient (REF) | payer OTHER ==
[2025-01-28 15:38] LABS: FREE T4 1.34 NG/DL (0.89-1.76)
[2025-02-03 23:32] LABS: TESTOSTERONE FREE (DIRECT) 54.1 pg/mL (35.0-155.0); TESTOSTERONE TOTAL FOR T&D 447.0 ng/dL (250-1100)
== END ==
LOC: M LAB REF 14:27
PROVIDERS: ATTEND Physician Assistant
DX: E03.9 Hypothyroidism, unspecified (principal)

== ENCOUNTER → 2025-02-05 | Outpatient (RCR) | payer OTHER | LOC: M PT 11:58 | PROVIDERS: ATTEND Physician Assistant | DX: M62.81 Muscle weakness (generalized) (principal) ==

== ENCOUNTER 2025-03-04 10:45 | Outpatient (RCR) | payer OTHER ==
[~2025-03-04 10:45] MED LIST changes: -IBUP-1022 PO; +IBUP600T42 PO
== END 2025-03-08 ==
LOC: M PT 10:45
PROVIDERS: ATTEND Physician Assistant
DX: M62.81 Muscle weakness (generalized) (principal)

== ENCOUNTER 2025-04-02 09:15 | Outpatient (RCR) | payer OTHER | END 2025-04-07 | LOC: M PT 09:15 | PROVIDERS: ATTEND Physician Assistant | DX: M62.81 Muscle weakness (generalized) (principal) ==